=== PATIENT | female | born 1980 | race Caucasian/White ===

== ENCOUNTER 2020-08-10 07:11 | Emergency (ER) | payer OTHER ==
[~2020-08-10] VITALS: Ht 165.1 cm; Wt 73.0 kg
[2020-08-10 08:29] LABS: BASOPHILS % 0.4 % (0.0-2.0); EOSINOPHILS % 0.8 % (0.0-5.0); HEMATOCRIT. 41.5 % (36.0-48.0); HEMOGLOBIN. 13.2 g/dL (12.0-16.0); LYMPHOCYTES % 14.8 % (20.0-50.0); MEAN CORPUSCULAR HEMOGLOBIN 28.5 pg (28.0-32.0); MEAN CORPUSCULAR VOLUME 89.3 fL (81.0-99.0); MEAN PLATELET VOLUME 9.2 fl (7.4-10.4); MONOCYTES % 4.1 % (2.0-8.0); NEUTROPHILS % 79.9 % (40.0-76.0); PLATELET 253 x1000/uL (130-400); RED BLOOD CELL COUNT 4.64 mill/uL (4.2-5.4); RED CELL DISTRIBUTION WIDTH 15.5 % (11.6-14.6)
[2020-08-10 08:37] LABS: CHLORIDE 104 mEq/L (98-107)
[2020-08-10 09:01] LABS: B-HCG QUANTITATIVE 5790 mIU/mL (<3)
[2020-08-10 09:44] LABS: CLARITY URINE TURBID (CLEAR); KETONES URINE TRACE (NEGATIVE); LEUKOCYTE ESTERASE URINE 2+ (NEGATIVE); NITRITE URINE NEGATIVE (NEGATIVE); OCCULT BLOOD URINE 3+ (NEGATIVE); PH URINE 5.5 (4.5-8.0); PROTEIN URINE 2+ (NEGATIVE); SPECIFIC GRAVITY URINE 1.021 (1.005-1.030); UROBILINOGEN URINE 0.2 E.U./dL (0.2-1.0)
[2020-08-10 09:53] LABS: COLOR URINE BLOODY (YELLOW)
[2020-08-10] MEDS ORDERED: MISOPROSTOL 200MCG TABLET PO ONE (10:00)
[2020-08-10 10:37] VITALS: BP 106/60
== END 2020-08-10 11:41 | disposition home or self-care (01) ==
LOC: ER 07:11
DX: O02.1 Missed abortion (principal)
CPT/HCPCS: 36415; 76801; 80053; 81003; 81025; 84702; 85025; 86850; 86900; 93005; 99285